=== PATIENT | male | born 1995 | race Caucasian/White ===

== ENCOUNTER 2020-04-11 12:33 | Emergency (ER) | payer OTHER, SELFPAY ==
[2020-04-11 12:42] VITALS: BP 139/80; PULSE 82; RESP 12; TEMP 36.6; O2SAT 100
--- NOTE | 2020-04-11 12:42 | ED.GENADULT ---
HPI - General Adult General Chief complaint: Upper Respiratory Infection Stated complaint: SORE THROAT Time Seen by Provider: 04/11/20 12:43 Source: patient Mode of arrival: ambulatory Limitations: no limitations History of Present Illness HPI narrative: 24-year-old male patient presents to the [facility] with complaints of sore throat that started yesterday. Patient states he has had recently a runny nose and some congestion for the past 4 days. Denies any ear pain or fevers, body aches or chills. Denies any chest pain or shortness of breath. Denies any coughing. Patient states he has taken ibuprofen every once a while for his symptoms. Denies taking any daily antihistamines. Related Data Allergies Allergy/AdvReac Type Severity Reaction Status Date / Time No Known Allergies Allergy Verified 04/11/20 12:42 Review of Systems Review of Systems: Narrative: CONSTITUTIONAL: Denies fever, chills, or sweats. EYES: Denies visual changes, redness, or discharge. ENT: Positive rhinorrhea, congestion, sore throat, denies otalgia. CARDIOVASCULAR: Denies chest pain, palpitations, or edema. RESPIRATORY: Denies cough or dyspnea. GASTROINTESTINAL: Denies abdominal pain, nausea, vomiting, or diarrhea. GENITOURINARY: Denies dysuria or hematuria. SKIN: Denies rash or itching. MUSCULOSKELETAL: Denies back pain, joint pain, or myalgia. NEUROLOGIC: Denies headache, numbness, or weakness. PSYCHIATRIC: Denies anxiety or depression. PMFSH Social History Social History Smoking status: Never smoker Comments At the time of my signature I agree with nursing past medical history, surgical, social, and family history. There is no relevant family history pertinent to the presenting complaint. Exam Narrative: Exam Narrative: GENERAL: Well-appearing, well-nourished, and in no acute distress. HEAD: Normocephalic, atraumatic. EYES: PERRLA and EOMI. ENT: Nares with erythema and edema noted bilaterally, no rhinorrhea or epistaxis. Mucous membranes moist. Posterior pharynx with some postnasal drip. No obvious erythema, tonsil enlargement or exudates or lesions are present. Bilateral TMs do have a little bit of fluid noted behind the eardrums but no erythema or bulging noted. NECK: Supple. No lymphadenopathy CHEST: Clear to auscultation. No respiratory distress. HEART: Regular rate and rhythm. No murmur heard. Normal peripheral pulses. ABDOMEN: Soft, nontender, nondistended, normal active bowel sounds. EXTREMITIES: Normal range of motion. No edema. SKIN: Warm, dry, no rash. NEURO: No focal deficits. Alert and oriented x3. Course Vital Signs Vital signs: Vital Signs Temperature 36.6 C 04/11/20 12:42 Pulse Rate 82 04/11/20 12:42 Respiratory Rate 12 04/11/20 12:42 Blood Pressure 139/80 04/11/20 12:42 Pulse Oximetry 100 04/11/20 12:42 Temperature 36.6 C 04/11/20 12:42 Pulse Rate 82 04/11/20 12:42 Respiratory Rate 12 04/11/20 12:42 Blood Pressure 139/80 04/11/20 12:42 Pulse Oximetry 100 04/11/20 12:42 Vital signs reviewed. The patient has been informed that they may have pre-hypertension or Hypertension based on a BP reading in the department. I recommend that the patient call the primary care provider listed on their discharge instructions or a physician of their choice this week to arrange follow up for further evaluation of possible pre-hypertension or Hypertension Medical Decision Making Differential Diagnosis Differential Diagnosis: Differential diagnosis: Viral pharyngitis, pharyngitis, group A strep, infectious mononucleosis, gonococcal pharyngitis, exudative pharyngitis, oral candidiasis. Chronic allergies, postnasal drip, GERD, abscess formation, but glottitis, retropharyngeal abscess formation, or airway obstruction. Cussed with patient that his strep test today is negative. Discussed with him that this is most likely due to sinus drainage that is ca
== END 2020-04-11 13:08 | disposition home or self-care (01) ==
PROVIDERS: Emergency Provider Nurse Practitioner Family
DX: J30.9 Allergic rhinitis, unspecified (principal); J02.9 Acute pharyngitis, unspecified
CPT/HCPCS: 87081; 87880; 99213; G0463

== ENCOUNTER 2021-01-08 10:14 | Emergency (ER) | payer OTHER, SELFPAY ==
--- NOTE | 2021-01-08 10:28 | ED.GENADULT ---
HPI - General Adult General Chief complaint: Upper Respiratory Infection Stated complaint: sore throat Time Seen by Provider: 01/08/21 10:28 Source: patient and RN notes reviewed Mode of arrival: ambulatory Limitations: no limitations History of Present Illness HPI narrative: 25-year-old male presents with complaints of sore throat and LT jaw and tooth irritation for the past 3 days. Yuri reports increasing irritation over the past 24-48 hours. Zyrtec and Ibuprofen, last taken today at 07:00 with little relief. No high fevers, drooling, neck or throat swelling. Pain is bilateral. Hurts to swallow. Exacerbation factors consist of eating and drinking. No rhinorrhea or nasal congestion. No voice change. No nausea, vomiting, or abdominal pain. Tolerating liquids well. Denies chills, dyspnea, difficulty swallowing, facial pain, foreign body sensation, and rash. Remains active. The patient reports he has not been diagnosed with COVID-19. The patient reports he received 2 Pfizer COVID-19 vaccines. The patient reports he is not waiting for the results of a COVID-19 lab test. The patient reports he does not have weakness, fatigue, or myalgia. The patient reports he does not have a new or worsening cough. The patient reports he does not have any loss of taste or smell and diarrhea. Denies recent traveling. Denies concerns for COVID-19 or exposures. At this time, the patient is not suspected of having COVID-19. Some parts of this dictation were generated by voice recognition software and may contain typographical and/or grammatical inaccuracies. Related Data Allergies Allergy/AdvReac Type Severity Reaction Status Date / Time No Known Allergies Allergy Verified 04/11/20 12:42 Review of Systems Review of Systems: CONSTITUTIONAL: Denies fever, chills, sweats. EYES: Denies visual changes, redness, discharge. ENT: Denies rhinorrhea, congestion, otalgia. Complains of sore throat, LT jaw and tooth irritation. CARDIOVASCULAR: Denies chest pain, palpitations, edema. RESPIRATORY: Denies dyspnea, wheezing, cough. GASTROINTESTINAL: Denies abdominal pain, nausea, vomiting, diarrhea. GENITOURINARY: Denies dysuria, hematuria, abnormal discharge. SKIN: Denies rash or itching. MUSCULOSKELETAL: Denies acute back pain, joint pain, or myalgia. NEUROLOGIC: Denies numbness or focal weakness. PSYCHIATRIC: Denies anxiety or depression. All systems reviewed & are unremarkable except as noted in HPI and below. [facility] Past Medical History Medical History (Updated 01/11/21 @ 00:13 by KAITLYN Morley) No significant past medical history Surgical History Surgical History (Updated 01/08/21 @ 10:35 by KAITLYN Morley) No significant past surgical history Family History Family History (Updated 01/08/21 @ 10:36 by KAITLYN Morley) Father Alive and well Mother Alive and well Social History Social History (Updated 01/08/21 @ 10:37 by KAITLYN Morley) Smoking status: Never smoker Tobacco type: cigarettes Second hand tobacco smoke exposure: No Alcohol intake: never Substance use: never Living arrangements: with family Occupation/Education: occupation Gender identity (if verbalized by the patient): Male Comments At time of signature, agree with the nurse past medical, surgical, social, and family history. There is no relevant family history pertinent to the presenting complaint. Exam Narrative: GENERAL: This is a well-nourished, well-developed patient, in no apparent distress. Speaks in full sentences without deficits and ambulates with steady gait without dyspnea. HEAD: Normocephalic, atraumatic. EYES: PERRL. Sclera clear/white. Vision is grossly intact. EARS: External ears normal, auditory canals clear and without drainage, TMs normal without perforation. Hearing grossly intact. NOSE: External nose normal with no obvious nasal discharge, nares with mild redness and enlarged turbina
[2021-01-08 10:30] VITALS: BP 152/76; PULSE 88; RESP 16; TEMP 37.4; O2SAT 100
[2021-01-08 12:14] VITALS: BP 130/80
== END 2021-01-08 10:59 | disposition home or self-care (01) ==
PROVIDERS: Emergency Provider Nurse Practitioner Family
DX: J02.9 Acute pharyngitis, unspecified (principal); K01.1 Impacted teeth; K04.7 Periapical abscess without sinus
CPT/HCPCS: 87081; 87880; 99213; G0463

== ENCOUNTER 2021-05-17 18:10 | Emergency (ER) | payer OTHER, SELFPAY ==
[2021-05-17 18:24] VITALS: BP 132/63; PULSE 70; RESP 16; TEMP 36.1; O2SAT 99
--- NOTE | 2021-05-17 18:35 | ED.UPPEXIN ---
HPI - Extremity Injury (Upper) General Chief Complaint: Extremity Injury, Upper Stated Complaint: left thum pain Time Seen by Provider: 05/17/21 19:03 Source: patient and RN notes reviewed Mode of arrival: ambulatory Limitations: no limitations History of Present Illness HPI narrative: 26-year-old male presents with concern for a needlestick injury. 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 Reports the needle had been inside the animal at one point. Reports the wound bled for approximately 2 minutes. Now reports bruising to the area. He denies any redness, swelling, discharge. Denies any decreased sensation, strength, range of motion of the digit. MD complaint: injury to: left and finger Related Data Allergies Allergy/AdvReac Type Severity Reaction Status Date / Time No Known Allergies Allergy Verified 05/17/21 18:25 Review of Systems Review of Systems: CONSTITUTIONAL: Denies malaise, chills, sweats, or fever. SKIN: Reports puncture wound to the first digit of the left hand MUSCULOSKELETAL: Denies muscle skeletal pain NEUROLOGIC: Denies numbness, weakness All systems reviewed & are unremarkable except as noted in HPI and below PMFSH Past Medical History Medical History (Updated 05/17/21 @ 19:12 by Kat Gonsalez NP) No significant past medical history Surgical History Surgical History (Updated 01/08/21 @ 10:35 by KAITLYN Morley) No significant past surgical history Family History Family History (Updated 01/08/21 @ 10:36 by KAITLYN Morley) Father Alive and well Mother Alive and well Social History Social History (Updated 01/08/21 @ 10:37 by KAITLYN Morley) Smoking status: Never smoker Tobacco type: cigarettes Second hand tobacco smoke exposure: No Alcohol intake: never Substance use: never Gender identity (if verbalized by the patient): Male Comments At time of signature, agree with nursing past medical, surgical, social and family history. There is no relevant family history pertinent to the presenting complaint Exam Narrative: GENERAL: Well-appearing, well-nourished, and in no acute distress. HEAD: Normocephalic, atraumatic. EYES: PERRLA, conjunctivae clear ENT: Mucous membranes moist. NECK: Supple. No lymphadenopathy CHEST: Clear to auscultation. No respiratory distress. HEART: Regular rate and rhythm. SKIN: Warm, dry. Scab noted to the palmar aspect of the tip of the first digit of the left hand with surrounding hematoma. No erythema, warmth noted NEURO: Alert and oriented x3. PSYCH: Normal mood and affect Course Course Emergency Course: Patient is aware of diagnosis, understands and agrees to treatment plan. Anticipatory guidance given. Patient agrees to follow-up as directed and is aware of reasons to seek care at the emergency department. Portions of this record may have been created with voice recognition software Vital Signs Vital signs: Vital Signs Temperature 97.0 F L 05/17/21 18:24 Pulse Rate 70 05/17/21 18:24 Respiratory Rate 16 05/17/21 18:24 Blood Pressure 132/63 05/17/21 18:24 Pulse Oximetry 99 05/17/21 18:24 Temperature 97.0 F L 05/17/21 18:24 Pulse Rate 70 05/17/21 18:24 Respiratory Rate 16 05/17/21 18:24 Blood Pressure 132/63 05/17/21 18:24 Pulse Oximetry 99 05/17/21 18:24 Reviewed. MDM - Extremity Injury (Upper) MDM Narrative Medical decision making narrative: Exam findings show no acute concerns or changes; patient is non-toxic appearing and is in no distress. Patient is appropriate for outpatient treatment and follow-up. Critical Care Time Critical Care Time Critical Care Time: No Discharge Plan Discharge Clinical Impression: Needle stick injury of finger of left hand Patient Disposition: Home, Self-Care Condition: Stable Instructions: Needle Stick
== END 2021-05-17 19:17 | disposition home or self-care (01) ==
PROVIDERS: Emergency Provider Nurse Practitioner; PCP Family Medicine
DX: S61.032A Puncture wound without foreign body of left thumb without damage to nail, initial encounter (principal); W27.3XXA Contact with needle (sewing), initial encounter; Y99.0 Civilian activity done for income or pay
CPT/HCPCS: 99212; G0463

== ENCOUNTER → 2021-06-28 02:37 | Outpatient (CLI) | payer OTHER, SELFPAY ==
[2021-06-28 19:07] LABS: SARS-CoV-2 RNA PCR Negative
== END ==
PROVIDERS: PCP Family Medicine; Visit Provider Family Medicine
DX: J02.9 Acute pharyngitis, unspecified (principal); Z20.822 Contact with and (suspected) exposure to COVID-19
CPT/HCPCS: C9803; U0003; U0005

== ENCOUNTER 2021-08-21 16:11 | Emergency (ER) | payer OTHER, SELFPAY ==
--- NOTE | 2021-08-21 16:12 | ED.URI ---
HPI - URI/Sore Throat General Chief Complaint: Upper Respiratory Infection Stated Complaint: Sore throat Time Seen by Provider: 08/21/21 16:12 Source: patient Mode of arrival: ambulatory Limitations: no limitations History of Present Illness HPI Narrative: Mr. Jack is a 26-year-old male patient presenting to the clinic today with complaints of sore throat since last Sunday. He reports this is a recurring issue for him. He reports he gets pharyngitis or strep often. He reports his PCP had planned to send him to a ears nose and throat provider if symptoms persist. He denies any fever or chills. Does have slight runny nose and cough. MD elicited complaint: sore throat and nasal congestion Related Data Allergies Allergy/AdvReac Type Severity Reaction Status Date / Time No Known Allergies Allergy Verified 05/17/21 18:25 Review of Systems Review of Systems: Pertinent positives per HPI. Patient denies any fever, chills, rash, headache, visual changes, dizziness, cough, shortness of breath, chest pain, palpitations, nausea, vomiting, diarrhea, constipation, abdominal pain, or any urinary issues. PMFSH Past Medical History Medical History No significant past medical history Surgical History Surgical History No significant past surgical history Family History Family History Father Alive and well Mother Alive and well Social History Social History Smoking status: Never smoker Tobacco type: cigarettes Second hand tobacco smoke exposure: No Alcohol intake: never Substance use: never Gender identity (if verbalized by the patient): Male Comments At the time of my signature, I reviewed and agree with the nursing past medical, surgical, social, and family history. There is no relevant family history pertinent to the patient complaint. Exam Narrative: General: Well-developed, well nourished, in no apparent distress Head: Normocephalic, atraumatic Eyes: Pupils equally round and reactive to light bilaterally, EOM intact, sclera and conjunctive clear, no discharge, lids normal Ears: TMs intact and clear, ear canals clear, no drainage, grossly hearing normal. Nose: Nares patent, no discharge, no inflammation, no sinus tenderness. Mouth: Oral pharynx without lesions or masses, good dentition, MMM. Oropharynx red with ulceration to the right anterior oropharynx Neck: Supple, trachea midline, no enlargement of anterior or posterior cervical nodes, no thyroid masses or goiter palpable. Cardio: Regular rate and rhythm, s1 and s2 normal, no murmur appreciated. Resp: Clear to auscultation bilaterally, no rhonchi, rales, wheezing or rubs Course Course Emergency Course: Portions of this record may have been created with voice recognition software. Level of Care: Express Care Visit Vital Signs Vital signs: Vital signs reviewed MDM - URI/Sore Throat MDM Narrative Medical decision making narrative: Upon assessment patient has a ulcerated area to the right anterior oropharynx, reports slight runny nose and cough. Strep screen is negative in the clinic. I suspect a viral pharyngitis/herpangina. Instructions for supportive measures given and will have patient follow-up with his PCP if symptoms persist. We will send throat swab for culture. Differential Diagnosis Differential diagnosis: Likely sinusitis, viral infection, influenza and pharyngitis (Strep pharyngitis) Discharge Plan Discharge Clinical Impression: Pharyngitis Qualifiers: Pharyngitis/tonsillitis etiology: unspecified etiology Qualified Code(s): J02.9 - Acute pharyngitis, unspecified Patient Disposition: Home, Self-Care Condition: Stable Instructions: Pharyngitis (ED) Additional Instructions:
[2021-08-21 16:18] VITALS: BP 147/78; PULSE 76; RESP 16; TEMP 36.6; O2SAT 98
== END 2021-08-21 16:39 | disposition home or self-care (01) ==
PROVIDERS: Emergency Provider Nurse Practitioner Family; PCP Family Medicine
DX: J02.9 Acute pharyngitis, unspecified (principal)
CPT/HCPCS: 87081; 87880; 99213; G0463

== ENCOUNTER 2021-09-29 15:07 | Emergency (ER) | payer OTHER, SELFPAY ==
[2021-09-29 15:16] VITALS: BP 124/99; PULSE 72; RESP 20; TEMP 36.8; O2SAT 100
--- NOTE | 2021-09-29 15:41 | ED.ABDPAIN ---
HPI - Abdominal Pain General Chief Complaint: Abdominal Pain Stated Complaint: BILAT LOWER RIB PAIN Time Seen by Provider: 09/29/21 15:26 Source: patient and RN notes reviewed Mode of arrival: ambulatory Limitations: no limitations History of Present Illness HPI narrative: Patient presents today complaining of bilateral lower rib pain that started yesterday. Patient states it is, as if the organs are being pushed against my ribs. He also reports generalized abdominal pain that started today with nausea. Denies shortness of breath, cough, fever, vomiting, diarrhea, constipation, urinary symptoms. He currently rates pain 610 and has tried no medication for symptoms prior to arrival. He is finishing a course of doxycycline tomorrow for throat infection. MD elicited complaint: abdominal pain Related Data Home Medications Medication Instructions Recorded Confirmed cetirizine [Zyrtec] mg 09/29/21 ibuprofen 200 mg PO Q6H PRN 09/29/21 09/29/21 Allergies Allergy/AdvReac Type Severity Reaction Status Date / Time No Known Allergies Allergy Verified 09/29/21 15:17 Review of Systems Review of Systems: CONSTITUTIONAL: Denies body aches, fever, chills, or sweats. EYES: Denies visual changes, redness, or discharge. ENT: Denies rhinorrhea, congestion, sore throat, or otalgia. CARDIOVASCULAR: Denies chest pain, palpitations, or edema. RESPIRATORY: Denies cough or dyspnea.+ Bilateral lower rib pain GASTROINTESTINAL: Denies vomiting, or diarrhea.+ Abdominal pain, nausea GENITOURINARY: Denies dysuria or hematuria. SKIN: Denies rash, itching, or wounds. MUSCULOSKELETAL: Denies back pain, joint pain, or myalgia. NEUROLOGIC: Denies headache, numbness, tingling, or weakness. PSYCH: Denies depression or anxiety. [facility] Past Medical History Medical History No significant past medical history Surgical History Surgical History No significant past surgical history Family History Family History Father Alive and well Mother Alive and well Social History Social History Smoking status: Never smoker Tobacco type: cigarettes Second hand tobacco smoke exposure: No Alcohol intake: never Substance use: never Gender identity (if verbalized by the patient): Male Comments At time of signature, I have reviewed and agree with nursing past medical, surgical, social and family history unless otherwise noted. Please see nursing chart for further information. There is no relevant family history pertinent to the presenting complaint Exam Narrative: GENERAL: Well-appearing, well-nourished, and in no acute distress. HEAD: Normocephalic, atraumatic. EYES: EOMI. No redness or drainage. Conjunctivae normal. ENT: Mucous membranes pink and moist. NECK: Normal AROM. Supple. No lymphadenopathy. CHEST: No respiratory distress. Clear to auscultation. HEART: Regular rate and rhythm. No murmur appreciated. Normal peripheral pulses. ABDOMEN: Soft, nondistended, normal active bowel sounds. Tenderness to palpation throughout the entire abdomen except the suprapubic area. No rebound or guarding. Tenderness extends to the bilateral anterior lower ribs. No crepitus or deformity noted. EXTREMITIES: Normal range of motion. No edema. SKIN: Warm, dry, no rash. Capillary refill normal. Normal skin turgor. NEURO: No focal deficits. Alert and oriented x3. Gait steady. PSYCH: Normal affect. No signs of depression or anxiety. Course Course Level of Care: Express Care Visit Vital Signs Vital signs: Vital Signs Temperature 98.2 F 09/29/21 15:16 Pulse Rate 72 09/29/21 15:16 Respiratory Rate 20 09/29/21 15:16 Blood Pressure 124/99 H 09/29/21 15:16 Pulse Oximetry 100 09/29/21 15:16
== END 2021-09-29 15:50 | disposition short-term general hospital (02) ==
PROVIDERS: Emergency Provider Nurse Practitioner; PCP Family Medicine
DX: R11.0 Nausea (principal); R07.81 Pleurodynia; R10.817 Generalized abdominal tenderness
CPT/HCPCS: 99212; G0463

== ENCOUNTER 2022-05-14 10:59 | Emergency (ER) | payer OTHER, SELFPAY ==
[2022-05-14 11:26] VITALS: BP 139/83; PULSE 104; RESP 16; TEMP 36.3; O2SAT 98
--- NOTE | 2022-05-14 12:05 | ED.URI ---
HPI - URI/Sore Throat General Chief Complaint: Upper Respiratory Infection Stated Complaint: fever, fatigue, congestion, cough Time Seen by Provider: 05/14/22 12:05 Source: patient and RN notes reviewed Mode of arrival: ambulatory Limitations: no limitations History of Present Illness HPI Narrative: 27-year-old male presented for complaint of sore throat, onset 6 days ago. But 2 days ago he noticed sinus pressure, congestion, cough and fever up to 103. He has taken Tylenol and ibuprofen for symptoms. He endorses history of frequent strep infections. He states this throat pain is the most severe he has ever had. He denies shortness of breath, wheezing, nausea, vomiting, diarrhea. He endorses sick contacts at his work. MD elicited complaint: cough Related Data Home Medications Medication Instructions Recorded Confirmed cetirizine 10 mg tablet (Zyrtec) 10 mg PO DAILY 09/29/21 05/14/22 Allergies Allergy/AdvReac Type Severity Reaction Status Date / Time No Known Allergies Allergy Verified 05/14/22 12:00 Review of Systems Review of Systems: CONSTITUTIONAL: Endorses malaise, chills, sweats, fever EYES: Denies visual changes, redness, or discharge ENT: Reports rhinorrhea, congestion, sinus pain, otalgia, sore throat CARDIOVASCULAR: Denies chest pain, palpitations, edema RESPIRATORY: Reports cough, post nasal drainage. Denies dyspnea GASTROINTESTINAL: Denies abdominal pain, nausea, vomiting, diarrhea SKIN: Denies rash or itching MUSCULOSKELETAL: Endorses myalgia PMFSH Past Medical History Medical History No significant past medical history Surgical History Surgical History No significant past surgical history Family History Family History Father Alive and well Mother Alive and well Social History Social History Smoking status: Never smoker Tobacco type: cigarettes Second hand tobacco smoke exposure: No Alcohol intake: never Substance use: never Gender identity (if verbalized by the patient): Male Exam Narrative: GENERAL: Ill-appearing, nontoxic EYES: PERRLA, conjunctivae clear ENT: Mucous membranes moist. TMs pearly bradford with dull light reflex bilaterally; no tragal tenderness. Oropharynx erythematous tonesils 1+ without lesions or exudate, no drooling, no hoarseness, no trismus, uvula midline. No tripod positioning, muffled voice, soft palate or pharyngeal wall bulging NECK: Supple. No lymphadenopathy CHEST: Clear to auscultation, breath sounds equal. No wheezing, rhonchi, rales, or stridor. No respiratory distress, speaks in full sentences. HEART: Regular rate and rhythm. No murmur heard. SKIN: Warm, dry, no rash. NEURO: Alert and oriented x3. PSYCH: Normal mood and affect Course Course Emergency Course: Patient is aware of diagnosis, understands and agrees to treatment plan. Anticipatory guidance given. Patient agrees to follow-up as directed and is aware of reasons to seek care at the emergency department. Portions of this record may have been created with voice recognition software Level of Care: Express Care Visit Vital Signs Vital signs: Vital Signs Temperature 97.4 F L 05/14/22 11:26 Pulse Rate 104 H 05/14/22 11:26 Respiratory Rate 16 05/14/22 11:26 Blood Pressure 139/83 05/14/22 11:26 Pulse Oximetry 98 05/14/22 11:26 Temperature 97.4 F L 05/14/22 11:26 Pulse Rate 104 H 05/14/22 11:26 Respiratory Rate 16 05/14/22 11:26 Blood Pressure 139/83 05/14/22 11:26 Pulse Oximetry 98 05/14/22 11:26 reviewed MDM - URI/Sore Throat MDM Narrative Medical decision making narrative: Flu neg Positive strep result reviewed with patient. Advised supportive measures and signs/symptoms to go to the ER. Pt is appropriate
== END 2022-05-14 12:50 | disposition home or self-care (01) ==
PROVIDERS: Emergency Provider Nurse Practitioner Family; PCP Family Medicine
DX: J02.0 Streptococcal pharyngitis (principal)
CPT/HCPCS: 87804; 87880; 99213; G0463

== ENCOUNTER 2022-09-09 13:52 | Emergency (ER) | payer OTHER, SELFPAY ==
[2022-09-09 14:03] VITALS: BP 112/80; PULSE 81; RESP 16; TEMP 36.8; O2SAT 99
--- NOTE | 2022-09-09 14:09 | ED.ANIMALBIT ---
HPI - Animal Bite General Chief Complaint: Animal Bite Stated Complaint: cat bite right forearm Time Seen by Provider: 09/09/22 14:10 Source: patient, RN notes reviewed and old records reviewed Mode of arrival: ambulatory Limitations: no limitations History of Present Illness HPI narrative: 27-year-old male presents to the [facility] with a cat bite to the right forearm. 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 Cleaned it well with iodine No swelling or bruising noted. Happened just prior to arrival Animal: cat Description of animal: household pet Mechanism: bite Location - Extremities: Right: forearm Related Data Allergies Allergy/AdvReac Type Severity Reaction Status Date / Time No Known Allergies Allergy Verified 09/09/22 14:03 Review of Systems Review of Systems: All systems reviewed & are unremarkable except as noted in HPI and below Constitutional: Constitutional: Reports no additional constitutional complaints Eyes: Eyes: Reports no additional eye complaints ENT: Reports system reviewed and no additional complaints, except as documented Cardiovascular: Cardiovascular: Reports no additional cardiovascular complaints, Denies chest pain and Denies dyspnea Respiratory: Respiratory: Reports no additional respiratory complaints, Denies chest congestion, Denies cough and Denies dyspnea Gastrointestinal: Gastrointestinal: Reports no additional gastrointestinal complaints, Denies abdominal pain, Denies nausea and Denies vomiting Musculoskeletal: Musculoskeletal: Reports no additional musculoskeletal complaints Integumentary/Breasts: Skin/Breast: Reports as per HPI Neurologic: Reports system reviewed and no additional complaints, except as documented Psychiatric: Psychiatric: Reports no additional psychiatric complaints Allergic/Immunologic: Allergic/Immunologic: Reports no additional allergic/immunologic complaints PMFSH Past Medical History Medical History No significant past medical history Surgical History Surgical History No significant past surgical history Family History Family History Father Alive and well Mother Alive and well Social History Social History Smoking status: Never smoker Tobacco type: cigarettes Second hand tobacco smoke exposure: No Alcohol intake: never Substance use: never Living arrangements: with family Occupation/Education: occupation Gender identity (if verbalized by the patient): Male Comments At the time of my signature, I reviewed and agree with the nursing past medical, surgical, social, and family history. There is no relevant family history pertinent to the patient complaint. Exam Const: General: cooperative, healthy appearing, comfortable, no acute distress, well developed, alert and well nourished Nutritional Appearance: well nourished Orientation/consciousness: patient oriented x3 Limitations: no limitations HENMT: Head: normal to inspection Ears: hearing grossly normal bilaterally and external ears normal Face/Nose/Sinus: Normal external nose present, Normal nares present, Normal nasal mucous membranes and turbinates present and normal facial exam Face and sinus: normal facial exam Mouth: Yes Normal oral and palatal mucosa present, Yes lip normal and Yes moist mucous membranes Eyes: General: appearance normal, both eyes and all related structures Alignment and Position: alignment normal Periorbital: periorbital findings normal Conjunctivae: conjunctivae normal Pupils: Equal, round and reactive pupils present EOM: EOMs intact bilaterally Neck: Neck: normal visual inspection, full ROM, no lymphadenopathy and no meningeal signs Chest: Chest palpation & inspection: normal inspection of the chest Resp: Effort & Inspection: normal r
[2022-09-09] MEDS: TETANUS,DIPHTHERIA,AC PERTUSSIS ADULT (0.5 ML) BOOSTRIX IM (14:21)
== END 2022-09-09 14:26 | disposition home or self-care (01) ==
PROVIDERS: Emergency Provider Nurse Practitioner; PCP Family Medicine
DX: S51.851A Open bite of right forearm, initial encounter (principal); Z23 Encounter for immunization; W55.01XA Bitten by cat, initial encounter
CPT/HCPCS: 90471; 90715; 99213; G0463

== ENCOUNTER 2022-12-25 08:07 | Emergency (ER) | payer OTHER, SELFPAY ==
--- NOTE | 2022-12-25 08:11 | ED.URI ---
HPI - URI/Sore Throat General Chief Complaint: Upper Respiratory Infection Stated Complaint: Facial pressure, headaches, sinus infection? Time Seen by Provider: 12/25/22 08:10 Source: patient Mode of arrival: ambulatory Limitations: no limitations History of Present Illness HPI Narrative: Yuri is a 27-year-old male patient presenting to the clinic today with complaints of possible sinus infection. He reports he has been having some facial pressure/green/yellow nasal discharge, low-grade fever, and headaches x2 weeks. He reports he also is concerned about a rash to his left arm that is very itchy. States he has had that for a few days. MD elicited complaint: nasal congestion, sinus pain and other (Headache) Related Data Home Medications Medication Instructions Recorded Confirmed cetirizine 10 mg tablet (Zyrtec) 10 mg PO DAILY 12/25/22 12/25/22 Allergies Allergy/AdvReac Type Severity Reaction Status Date / Time No Known Allergies Allergy Verified 12/25/22 08:16 Review of Systems Review of Systems: Pertinent positives per HPI. Patient denies any visual changes, dizziness, cough, shortness of breath, chest pain, palpitations, nausea, vomiting, diarrhea, constipation, abdominal pain, or any urinary issues. PMFSH Past Medical History Medical History No significant past medical history Surgical History Surgical History No significant past surgical history Family History Family History Father Alive and well Mother Alive and well Social History Social History Smoking status: Never smoker Tobacco type: cigarettes Second hand tobacco smoke exposure: No Alcohol intake: never Substance use: never Living arrangements: with family Occupation/Education: occupation Gender identity (if verbalized by the patient): Male Comments At the time of my signature, I reviewed and agree with the nursing past medical, surgical, social, and family history. There is no relevant family history pertinent to the patient complaint. Exam Narrative: General: Well-developed, well nourished, in no apparent distress Head: Normocephalic, atraumatic Eyes: Pupils equally round and reactive to light bilaterally, EOM intact, sclera and conjunctive clear, no discharge, lids normal Ears: TMs intact and clear, ear canals clear, no drainage, grossly hearing normal. Nose: Nares patent, green nasal discharge, moderate inflammation, maxillary and frontal sinus tenderness. Mouth: Oral pharynx without lesions or masses, good dentition, MMM. Postnasal drip Neck: Supple, trachea midline, no enlargement of anterior or posterior cervical nodes, no thyroid masses or goiter palpable. Cardio: Regular rate and rhythm, s1 and s2 normal, no murmur appreciated. Resp: Clear to auscultation bilaterally, no rhonchi, rales, wheezing or rubs. Integumentary: [place], warm, and dry, intact without lesion, red, raised, itchy blistery scaly appearing rash to the left of forearm Course Course Emergency Course: Portions of this record may have been created with voice recognition software. Level of Care: Express Care Visit Vital Signs Vital signs: Vital signs reviewed MDM - URI/Sore Throat MDM Narrative Medical decision making narrative: At the time of visit patient is resting comfortably on the exam table. I suspect patient has acute bacterial rhinosinusitis. Prescription for prednisone and Augmentin was sent for this. Also suspect the patient has poison brock dermatitis to the left arm. Prescription for triamcinolone cream was sent to the pharmacy Differential Diagnosis Differential diagnosis: Likely upper respiratory infection, otitis media, sinusitis (Contact dermatitis, herpes zoster
[2022-12-25 08:19] VITALS: BP 149/83; PULSE 85; RESP 16; TEMP 37.1; O2SAT 99
== END 2022-12-25 08:28 | disposition home or self-care (01) ==
PROVIDERS: Emergency Provider Nurse Practitioner Family; PCP Family Medicine
DX: J01.90 Acute sinusitis, unspecified (principal); L23.7 Allergic contact dermatitis due to plants, except food
CPT/HCPCS: 99213; G0463

== ENCOUNTER 2023-03-01 18:27 | Emergency (ER) | payer OTHER, SELFPAY ==
--- NOTE | ~2023-03-01 | XR_ITS ---
EXAMINATION: XR nasal bones min 3V INDICATION: Facial pain TECHNIQUE: Three views of the nasal bones are obtained. COMPARISON: None available FINDINGS: No displaced nasal bone fracture is identified. The paranasal sinuses appear well-aerated. The soft tissues are unremarkable. No facial fracture is seen. IMPRESSION: 1. No displaced nasal bone fracture identified. If there is high clinical suspicion for fracture, con mounter saxophones further evaluation with CT. Reviewed, dictated and finalized at location F. IMPRESSION: 1. No displaced nasal bone fracture identified. If there is high clinical suspi cion for fracture, consider further evaluation with CT.
[2023-03-01 18:43] VITALS: BP 138/81; PULSE 88; RESP 16; TEMP 36.8; O2SAT 99
--- NOTE | 2023-03-01 19:26 | ED.ANIMALBIT ---
HPI - Animal Bite General Chief Complaint: Animal Bite Stated Complaint: Dog Bite Time Seen by Provider: 03/01/23 18:45 Source: patient Mode of arrival: ambulatory Limitations: no limitations History of Present Illness HPI narrative: Yuri is a 27-year-old male patient presenting to the clinic today with complaints of a dog bite to the left hand as well as his a nasal bone injury. He reports that he was bitten on the hand by a dog this evening. There is no active bleeding currently. Did state that he washes hand very well after the bite. Also reports that another dog head-butted him in the nose and he is having some nasal bridge pain. History of nasal septoplasty. No epistaxis. Tetanus shot is up-to-date Related Data Home Medications Medication Instructions Recorded Confirmed No Home Medications 03/01/23 03/01/23 Allergies Allergy/AdvReac Type Severity Reaction Status Date / Time No Known Allergies Allergy Verified 12/25/22 08:16 Review of Systems Review of Systems: Pertinent positives per HPI. Patient denies any fever, chills, rash, headache, visual changes, dizziness, cough, runny nose, sore throat, shortness of breath, chest pain, palpitations, nausea, vomiting, diarrhea, constipation, abdominal pain, or any urinary issues. PMFSH Past Medical History Medical History No significant past medical history Surgical History Surgical History No significant past surgical history Family History Family History Father Alive and well Mother Alive and well Social History Social History Smoking status: Never smoker Tobacco type: cigarettes Second hand tobacco smoke exposure: No Alcohol intake: never Substance use: never Living arrangements: with family Occupation/Education: occupation Gender identity (if verbalized by the patient): Male Comments At the time of my signature, I reviewed and agree with the nursing past medical, surgical, social, and family history. There is no relevant family history pertinent to the patient complaint. Exam Narrative: General: Well-developed, well nourished, in no apparent distress Head: Normocephalic, atraumatic. Mild tenderness to palpation over the nasal bridge without deformity or bruising Cardio: Regular rate and rhythm, s1 and s2 normal, no murmur appreciated. Resp: Clear to auscultation bilaterally, no rhonchi, rales, wheezing or rubs. Integumentary: [place], warm, and dry, intact without lesion, no rashes. Mild red abrasions noted to the dorsal and volar aspect of the left hand over the 2nd and 3rd knuckle and to the volar aspect of the left thumb without bleeding, no open wound Course Course Emergency Course: Portions of this record may have been created with voice recognition software. Level of Care: Express Care Visit Vital Signs Vital signs: Vital Signs Temperature 36.8 C 03/01/23 18:43 Pulse Rate 88 03/01/23 18:43 Respiratory Rate 16 03/01/23 18:43 Blood Pressure 138/81 03/01/23 18:43 Pulse Oximetry 99 03/01/23 18:43 Oxygen Delivery Room Air 03/01/23 18:43 Temperature 36.8 C 03/01/23 18:43 Pulse Rate 88 03/01/23 18:43 Respiratory Rate 16 03/01/23 18:43 Blood Pressure 138/81 03/01/23 18:43 Pulse Oximetry 99 03/01/23 18:43 Oxygen Delivery Room Air 03/01/23 18:43 Vital signs reviewed MDM - Animal Bite MDM Narrative Medical decision making narrative: At the time of visit patient is resting comfortably on the exam table. X-ray of the nasal bone was performed and was negative. He has abrasions to the left hand from a dog bite. No open skin/wound. Tetanus shot is up-to-date. Ordered measures were discussed with the patient he voiced understanding
== END 2023-03-01 19:34 | disposition home or self-care (01) ==
PROVIDERS: Emergency Provider Nurse Practitioner Family; PCP Family Medicine
DX: S61.452A Open bite of left hand, initial encounter (principal); S00.33XA Contusion of nose, initial encounter; W54.0XXA Bitten by dog, initial encounter
CPT/HCPCS: 70160; 99213; G0463

== ENCOUNTER 2023-09-10 15:41 | Emergency (ER) | payer OTHER, BC, SELFPAY ==
--- NOTE | ~2023-09-10 | XR_ITS ---
EXAM: XR nasal bones min 3V DATE: 09/10/2023 16:30 HISTORY: struck in nose by dog prior to arrival, epistaxis. . COMPARISON: 03/01/2023. FINDINGS: Normal mineralization. No fracture or dislocation. No lytic or blastic lesion. Intact, sym metric orbits. Aerated spaces are clear. No abnormal intracranial calcification. No erosion or perios teal change. Soft tissues within normal limits. IMPRESSION: Unremarkable nasal bone radiograph findings. Reviewed, dictated and finalized at location K.
[2023-09-10 16:00] VITALS: BP 152/70; PULSE 71; RESP 16; TEMP 37.5; O2SAT 99
--- NOTE | 2023-09-10 16:24 | ED.GENADULT ---
HPI - General Adult General Chief complaint: Epistaxis Stated complaint: injured nose Time Seen by Provider: 09/10/23 16:18 Source: patient, RN notes reviewed and old records reviewed Mode of arrival: ambulatory Limitations: no limitations History of Present Illness HPI narrative: Patient presents today complaining of an injury to his nose. 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 Bleeding stopped just after arrival. Currently rates his pain 5/10. History of 2 septoplasty is a in the past. Patient has had a similar injury in February where nasal bone xray was negative for fracture. Related Data Home Medications Medication Instructions Recorded Confirmed cetirizine 10 mg tablet (Zyrtec) 10 mg PO DAILY 09/10/23 09/10/23 Allergies Allergy/AdvReac Type Severity Reaction Status Date / Time No Known Allergies Allergy Verified 09/10/23 15:45 Review of Systems Review of Systems: CONSTITUTIONAL: Denies body aches, fever, chills, or sweats. EYES: Denies visual changes, redness, or discharge. ENT: Denies rhinorrhea, congestion, sore throat, or otalgia. Nasal injury, epistaxis. CARDIOVASCULAR: Denies chest pain, palpitations, or edema. RESPIRATORY: Denies cough or dyspnea. GASTROINTESTINAL: Denies abdominal pain, nausea, vomiting, or diarrhea. GENITOURINARY: Denies dysuria or hematuria. SKIN: Denies rash, itching, or wounds. MUSCULOSKELETAL: Denies back pain, joint pain, or myalgia. NEUROLOGIC: Denies headache, numbness, tingling, or weakness. PSYCH: Denies depression or anxiety. [facility] Past Medical History Medical History (Updated 09/10/23 @ 16:44 by Sierra Marinelli, KAITLYN, BC) No significant past medical history Surgical History Surgical History (Updated 09/10/23 @ 16:27 by Sierra Marinelli, KAITLYN, CHRISTINE) H/O nasal septoplasty Family History Family History Father Alive and well Mother Alive and well Social History Social History Smoking status: Never smoker Tobacco type: cigarettes Second hand tobacco smoke exposure: No Alcohol intake: never Substance use: never Living arrangements: with family Occupation/Education: occupation Gender identity (if verbalized by the patient): Male Comments Reviewed Exam Narrative: GENERAL: Well-appearing, well-nourished, and in no acute distress. HEAD: Normocephalic, atraumatic. EYES: EOMI. PERRL. No redness or drainage. Conjunctivae normal. ENT: Mucous membranes pink and moist. Tenderness to nasal bridge with mild edema. No septal hematoma noted. No obvious septal deviation noted. No active epistaxis. Teeth and lips normal. NECK: Normal AROM. CHEST: No respiratory distress. EXTREMITIES: Normal range of motion. No edema. SKIN: Warm, dry, no rash. Capillary refill normal. Normal skin turgor. NEURO: No focal deficits. Alert and oriented x3. Gait steady. PSYCH: Normal affect. No signs of depression or anxiety. Course Course Level of Care: Express Care Visit Vital Signs Vital signs: Vital Signs Temperature 99.5 F 09/10/23 16:00 Pulse Rate 71 09/10/23 16:00 Respiratory Rate 16 09/10/23 16:00 Blood Pressure 152/70 H 09/10/23 16:00 Pulse Oximetry 99 09/10/23 16:00 Oxygen Delivery Room Air 09/10/23 16:00 Temperature 99.5 F 09/10/23 16:00 Pulse Rate 71 09/10/23 16:00 Respiratory Rate 16 09/10/23 16:00 Blood Pressure 152/70 H 09/10/23 16:00 Pulse Oximetry 99 09/10/23 16:00 Oxygen Delivery Room Air 09/10/23 16:00 Reviewed Medical Decision Making MDM Narrative Medical decision making narrative: X-rays negative for fracture. Recommend Tylenol or ibuprofen for pain and swelling. No prescription medications indicated at this time. Anticipatory guidance
== END 2023-09-10 16:50 | disposition home or self-care (01) ==
PROVIDERS: Emergency Provider Nurse Practitioner; PCP Family Medicine
DX: S00.33XA Contusion of nose, initial encounter (principal); W54.1XXA Struck by dog, initial encounter
CPT/HCPCS: 70160; 99213; G0463

== ENCOUNTER 2023-10-01 12:17 | Emergency (ER) | payer OTHER, SELFPAY ==
[2023-10-01 12:27] VITALS: BP 149/91; PULSE 85; RESP 16; TEMP 36.9; O2SAT 99
--- NOTE | 2023-10-01 12:35 | ED.SKABFB ---
HPI - Skin/Abscess/Foreign Bdy General Chief complaint: Skin/Abscess/Foreign Body Stated complaint: cat bite middle finger right hand Time Seen by Provider: 10/01/23 12:35 Source: patient Mode of arrival: ambulatory Limitations: no limitations History of Present Illness HPI narrative: 28 yo M presents with cat bite to R middle finger. 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 Stray cat bit him after giving cat vaccines. Two small punctures wounds noted. No active bleeding. all systems reviewed and negative except as noted above. Related Data Home Medications Medication Instructions Recorded Confirmed cetirizine 10 mg tablet (Zyrtec) 10 mg PO DAILY 09/10/23 10/01/23 Allergies Allergy/AdvReac Type Severity Reaction Status Date / Time No Known Allergies Allergy Verified 10/01/23 12:22 Review of Systems Review of Systems: CONSTITUTIONAL: Denies fever, chills, or sweats. EYES: Denies visual changes, redness, or discharge. ENT: Denies rhinorrhea, congestion, sore throat, or otalgia. CARDIOVASCULAR: Denies chest pain, palpitations, or edema. RESPIRATORY: Denies cough or dyspnea. GASTROINTESTINAL: Denies abdominal pain, nausea, vomiting, or diarrhea. GENITOURINARY: Denies dysuria or hematuria. SKIN: Denies rash or itching. Reports cat bite to right middle finger. MUSCULOSKELETAL: Denies back pain, joint pain, or myalgia. NEUROLOGIC: Denies headache, numbness, or weakness. PSYCHIATRIC: Denies anxiety or depression. All other systems reviewed are negative, except as documented in HPI. [facility] Past Medical History Medical History (Updated 10/01/23 @ 12:41 by Madison Atwood NP) No significant past medical history Surgical History Surgical History (Updated 09/10/23 @ 16:27 by Sierra Marinelli, KAITLYN, BC) H/O nasal septoplasty Family History Family History Father Alive and well Mother Alive and well Social History Social History Smoking status: Never smoker Tobacco type: cigarettes Second hand tobacco smoke exposure: No Alcohol intake: never Substance use: never Living arrangements: with family Occupation/Education: occupation Gender identity (if verbalized by the patient): Male Comments At time of signature, agree with nursing past medical, surgical, social and family history. There is no relevant family history pertinent to the presenting complaint. Exam Narrative: GENERAL: This is a well-nourished, well-developed patient, in no apparent distress. HEAD: normocephalic, atraumatic. EYES: PERRL. Sclera clear/white. Vision is grossly intact. EARS: External ears normal NOSE: External nose normal NECK: Neck supple, non-tender without lymphadenopathy, masses or thyromegaly. CARDIOVASCULAR: Regular rate and rhythm without murmurs, gallops, or rubs. RESPIRATORY: Clear to auscultation. Breath sounds equal bilaterally. No wheezes, rales, or rhonchi. SKIN: warm, Dry, intact with no suspicious lesions or rash, good texture and turgor. two very small puncture wounds to R middle finger, distal aspect. no signs of infection. no active bleeding. ROM and distal NV intact. NEURO: awake, alert, and oriented to person, place and time. There were no obvious focal neurologic abnormalities. EXTREMITIES: No joint tenderness, effusion, or edema noted. Course Course Level of Care: Express Care Visit Vital Signs Vital signs: Vital Signs Temperature 36.9 C 10/01/23 12: Pulse Rate 85 10/01/23 12: Respiratory Rate 16 10/01/23 12:27 Blood Pressure 149/91 H 10/01/23 12: Pulse Oximetry 99 10/01/23 12:27 Oxygen Delivery Room Air 10/01/23 12:27 Temperature 36.9 C 10/01/23 12: Pulse Rate 85 10/01/23 12:27 Respiratory Rate 16 10/01/23 12:27 Blood Pressure 149/91 H 10/01/23 12:27 Pulse Oximetry 99 10/01/23 12:27 Oxygen Delivery Room Air
== END 2023-10-01 12:47 | disposition home or self-care (01) ==
PROVIDERS: Emergency Provider Nurse Practitioner Family; PCP Family Medicine
DX: S61.232A Puncture wound without foreign body of right middle finger without damage to nail, initial encounter (principal); W55.01XA Bitten by cat, initial encounter
CPT/HCPCS: 99213; G0463

== ENCOUNTER 2024-05-31 09:32 | Emergency (ER) | payer OTHER, SELFPAY ==
[2024-05-31 09:43] VITALS: BP 153/95; PULSE 84; RESP 16; TEMP 36.4; O2SAT 100
--- NOTE | 2024-05-31 09:52 | ED.ANIMALBIT ---
HPI - Animal Bite General Chief Complaint: Animal Bite Stated Complaint: Cat Bite Time Seen by Provider: 05/31/24 09:52 Source: patient, RN notes reviewed and old records reviewed Mode of arrival: ambulatory Limitations: no limitations History of Present Illness HPI narrative: Patient presents with complaints of animal bite to the right hand. 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 He does have 2 puncture wounds to the right hand. He is up-to-date on tetanus. He cleaned the wound prior to arrival. Denies other injury and trauma. Voices no other concerns or complaints. Is able to move the affected hand without difficulty Related Data Allergies Allergy/AdvReac Type Severity Reaction Status Date / Time No Known Allergies Allergy Verified 05/31/24 09:47 Review of Systems Review of Systems: All systems reviewed & are unremarkable except as noted in HPI and below Constitutional: Constitutional: Reports no additional constitutional complaints ENT: Reports system reviewed and no additional complaints, except as documented Cardiovascular: Cardiovascular: Reports no additional cardiovascular complaints Respiratory: Respiratory: Reports no additional respiratory complaints Gastrointestinal: Gastrointestinal: Reports no additional gastrointestinal complaints Integumentary/Breasts: Skin/Breast: Reports as per HPI [facility], [facility] Past Medical History Medical History (Updated 05/31/24 @ 10:03 by Jud Gaona APRN) No significant past medical history Surgical History Surgical History H/O nasal septoplasty Family History Family History Father Alive and well Mother Alive and well Social History Social History Smoking status: Never smoker Tobacco type: cigarettes Second hand tobacco smoke exposure: No Alcohol intake: never Substance use: never Living arrangements: with family Occupation/Education: occupation Gender identity (if verbalized by the patient): Male Comments At the time of my signature, I reviewed and agree with the nursing past medical, surgical, social, and family history. There is no relevant family history pertinent to the patient complaint. Exam Const: General: cooperative, no acute distress, alert and awake Orientation/consciousness: oriented to person, oriented to place and oriented to time HENMT: Head: normal to inspection Resp: Effort & Inspection: normal respiratory effort and able to speak in complete sentences Auscultation: clear to auscultation bilaterally, no crackles, no rales, no rhonchi and no wheezes Cardio: Palpation: normal PMI Rate: regular rate Rhythm: regular rhythm Heart sounds: S1 normal heart sound present and S2 normal heart sound present Neuro: General: oriented to person, oriented to place and oriented to time Cranial nerves: Yes CN's II-XII intact bilaterally Extrem: Hand/finger images:  1. Puncture wound 2. Puncture wound Psych: Appearance: grossly normal Thought process: Normal thought process present Insight: Good insight present (Psych) Judgement: Good judgement present (Psych) Course Course Level of Care: Express Care Visit Vital Signs Vital signs: Vital Signs Temperature 97.6 F 05/31/24 09:43 Pulse Rate 84 05/31/24 09:43 Respiratory Rate 16 05/31/24 09:43 Blood Pressure 153/95 H 05/31/24 09:43 Pulse Oximetry 100 05/31/24 09:43 Oxygen Delivery Room Air 05/31/24 09:43 Temperature 97.6 F 05/31/24 09:43 Pulse Rate 84 05/31/24 09:43 Respiratory Rate 16 05/31/24 09:43 Blood Pressure 153/95 H 05/31/24 09:43 Pulse Oximetry 100 05/31/24 09:43 Oxygen Delivery Room Air 05/31/24 09:43 Reviewed MDM - Animal Bite MDM Narrative Medical decision making narrative: Patient presents with cat bite to the hand, happened on the job. There are safe guards and placed to follow-up to check animal behavior in the next 10 days. Low likelihood of this animal being rabid. Start Augmentin. Tetanus up-to-date Some parts of this dictation were generated by voice recognition software and may contain typographical and/or grammatical inaccuracies. Discharge instructions reviewed with patient, as well as provided in writing per nursing staff. The instructions also include specific and strict return/GO TO THE ER as well as f/u information. All questions have been answered, and the patient deny any further questions with discharge and discharge plan. Differential Diagnosis Differential diagnosis: Likely bite by animal and cat bite Medical Records Attestation: I reviewed the patient's medical records. Discharge Plan Discharge Clinical Impression: Bite by animal Patient Disposition: Home, Self-Care Condition: Stable Instructions: Antibiotic Form, Animal Bite (ED) Additional Instructions: Take medications as prescribed. Follow with primary care provider. Emergency department for new or worse symptoms. Blood pressure is elevated at 150 3/95 today. Normal blood pressure is 120/80. Please discuss this with your primary care provider Patient Language: [place]ic Prescriptions: New amoxicillin-pot clavulanate 875-125 mg tablet 1 tablet PO Q12H Qty: 14 0RF Follow-up/Referrals: Zain,MD Kj [Primary Care Provider] - 2 Weeks Time of Disposition: 10:04
== END 2024-05-31 10:10 | disposition home or self-care (01) ==
PROVIDERS: Emergency Provider Nurse Practitioner Family; PCP Family Medicine
DX: S61.431A Puncture wound without foreign body of right hand, initial encounter (principal); W55.01XA Bitten by cat, initial encounter; Y99.0 Civilian activity done for income or pay
CPT/HCPCS: 99213; G0463

== ENCOUNTER 2024-06-02 08:34 | Emergency (ER) | payer SELFPAY ==
[2024-06-02 08:38] VITALS: BP 135/81; PULSE 84; RESP 16; TEMP 36.9; O2SAT 99
--- NOTE | 2024-06-02 08:47 | ED.WOUNDLAC ---
HPI - Wound/Laceration General Chief Complaint: Wound/Laceration Stated Complaint: Wound Check Time Seen by Provider: 06/02/24 08:47 Source: patient, RN notes reviewed and old records reviewed Mode of arrival: ambulatory Limitations: no limitations History of Present Illness HPI narrative: Patient treated for cat bite to the right hand on 05/31/2024 presents today with complaints of worsening to the site. The hand is now slightly swollen, dorsal aspect is red. Patient reports that he has been taking Augmentin as prescribed. Says he has been taking Tylenol and ibuprofen. Feels he may have been running a fever this morning Related Data Home Medications ?Medication ?Instructions ?Recorded ?Confirmed ?Last Taken ?Type cefdinir 300 mg capsule mg 06/02/24 Unknown History Allergies Allergy/AdvReac Type Severity Reaction Status Date / Time prednisone AdvReac Intermediate Fatigued Verified 06/02/24 08:37 Review of Systems Review of Systems: All systems reviewed & are unremarkable except as noted in HPI and below Constitutional: Constitutional: Reports no additional constitutional complaints ENT: Reports system reviewed and no additional complaints, except as documented Cardiovascular: Cardiovascular: Reports no additional cardiovascular complaints Respiratory: Respiratory: Reports no additional respiratory complaints Gastrointestinal: Gastrointestinal: Reports no additional gastrointestinal complaints Integumentary/Breasts: Skin/Breast: Reports system reviewed and no additional complaints, except as docu and Reports as per HPI [facility] Past Medical History Medical History (Updated 06/02/24 @ 09:19 by Jud Gaona APRN) No significant past medical history Surgical History Surgical History H/O nasal septoplasty Family History Family History Father Alive and well Mother Alive and well Social History Social History Smoking status: Never smoker Tobacco type: cigarettes Second hand tobacco smoke exposure: No Alcohol intake: never Substance use: never Living arrangements: with family Occupation/Education: occupation Gender identity (if verbalized by the patient): Male Comments At the time of my signature, I reviewed and agree with the nursing past medical, surgical, social, and family history. There is no relevant family history pertinent to the patient complaint. Exam Const: General: cooperative, no acute distress, alert and awake Orientation/consciousness: oriented to person, oriented to place and oriented to time HENMT: Head: normal to inspection Resp: Effort & Inspection: normal respiratory effort and able to speak in complete sentences Auscultation: clear to auscultation bilaterally, no crackles, no rales, no rhonchi and no wheezes Cardio: Palpation: normal PMI Rate: regular rate Rhythm: regular rhythm Heart sounds: S1 normal heart sound present and S2 normal heart sound present Neuro: General: oriented to person, oriented to place and oriented to time Cranial nerves: Yes CN's II-XII intact bilaterally Extrem: Right upper extremity: full ROM and normal capillary refill Hand/finger images:  1. Redness and mild swelling, 1 puncture wound with scab over it noted. No drainage. No defined abscess Psych: Appearance: grossly normal Thought process: Normal thought process present Insight: Good insight present (Psych) Judgement: Good judgement present (Psych) Course Course Level of Care: Express Care Visit Vital Signs Vital signs: Vital Signs Temperature 98.5 F 06/02/24 08:38 Pulse Rate 84 06/02/24 08:38 Respiratory Rate 16 06/02/24 08:38 Blood Pressure 135/81 06/02/24 08:38 Pulse Oximetry 99 06/02/24 08:38 Oxygen Delivery Autopap 06/02/24 08:38 Temperature 98.5 F 06/02/24 08:38 Pulse Rate 84 06/02/24 08:38 Respiratory Rate 16 06/02/24 08:38 Blood Pressure 135/81 06/02/24 08:38 Pulse Oximetry 99 06/02/24 08:38 Oxygen Delivery Autopap 06/02/24 08:38 Reviewed MDM - Wound/Laceration MDM Narrative Medical decision making narrative: Patient with cat bite 2 days ago started Augmentin, now with worsening symptoms. Change antibiotic to doxycycline. Patient advised that if symptoms become worse again he must go to the emergency department. He is encouraged to follow-up with his primary care provider in any case. Discharge instructions reviewed with patient, as well as provided in writing per nursing staff. The instructions also include specific and strict return/GO TO THE ER as well as f/u information. All questions have been answered, and the patient deny any further questions with discharge and discharge plan. Some parts of this dictation were generated by voice recognition software and may contain typographical and/or grammatical inaccuracies. Differential Diagnosis Differential diagnosis: Likely laceration, abscess and avulsion of skin Medical Records Attestation: I reviewed the patient's medical records. Discharge Plan Discharge Clinical Impression: Cat bite Patient Disposition: Home, Self-Care Condition: Stable Instructions: Antibiotic Form, Animal Bite (ED) Additional Instructions: Stop Augmentin, begin doxycycline. Follow with primary care provider. Emergency department for new or worsening symptoms Patient Language: [place] Citizen Prescriptions: New doxycycline hyclate 100 mg capsule 100 mg PO BID Qty: 20 0RF No Action cefdinir 300 mg capsule Follow-up/Referrals: Zain,MD Kj [Primary Care Provider] - 2 Weeks Stand Alone Forms: Work/School Release IP Time of Disposition: 09:20
== END 2024-06-02 09:29 | disposition home or self-care (01) ==
PROVIDERS: Emergency Provider Nurse Practitioner Family; PCP Family Medicine
DX: S61.451A Open bite of right hand, initial encounter (principal); W54.0XXA Bitten by dog, initial encounter
CPT/HCPCS: 99213; G0463